=== PATIENT | female | born 1975 | race Caucasian/White ===

== ENCOUNTER 2019-04-04 13:40 | Emergency (ER) | payer BC ==
[~2019-04-04] VITALS: Ht 170.2 cm; Wt 65.3 kg
[2019-04-04 13:53] VITALS: BP 132/78
--- NOTE | 2019-04-04 14:16 | PHYS DOC ---
Past Medical History Past Medical History: Depression, Heart Disease Additional Past Medical Histor: WEAK LEFT VENTRICLE Alcohol Use: None Drug Use: None Adult General Chief Complaint Chief Complaint: LACERATION/AVULSION HPI HPI Patient is a 44 year old right-handed female who presents with complaining of laceration of left ring finger. Patient states she cut tip of her left finger chopping onion without other injuries. Patient denies other injuries and focal neurodeficit. Patient is up-to-date with tetanus immunization. Review of Systems Review of Systems Constitutional: Denies fever or chills [] Eyes: Denies change in visual acuity, redness, or eye pain [] HENT: Denies nasal congestion or sore throat [] Respiratory: Denies cough or shortness of breath [] Cardiovascular: No additional information not addressed in HPI [] GI: Denies abdominal pain, nausea, vomiting, bloody stools or diarrhea [] : Denies dysuria or hematuria [] Musculoskeletal: Denies back pain, reports extremity pain Integument: Denies rash or skin lesions [] Neurologic: Denies headache, focal weakness or sensory changes [] Endocrine: Denies polyuria or polydipsia [] All other systems were reviewed and found to be within normal limits, except as documented in this note. Physical Exam Physical Exam Constitutional: Well developed, well nourished, mild distress, non-toxic appearance. [] HENT: Normocephalic, atraumatic. Eyes: PERRLA, EOMI, conjunctiva normal, no discharge. [] Neck: Normal range of motion, no tenderness, supple, no stridor. [] Cardiovascular:Heart rate regular rhythm, no murmur [] Lungs & Thorax: Bilateral breath sounds clear to auscultation [] Extremities: Flap laceration of tip of left ring finger with a small Pedicle in place with change of color of flap with mild bleeding .[] Neurologic: Alert and oriented X 3, no focal deficits noted. [] Psychologic: Affect normal, judgement normal, mood normal. [] Current Patient Data Vital Signs Vital Signs Date Time Temp Pulse Resp B/P (MAP) Pulse Ox O2 Delivery O2 Flow Rate FiO2 04/04/19 13:53 98.2 73 16 132/78 (96) 97 Room Air 98.2 EKG EKG [] Radiology/Procedures Radiology/Procedures [] Course & Med Decision Making Course & Med Decision Making Evaluation of patient in ER showed 44-year-old female patient with finger tip laceration that was treated with Dermabond and Steri-Strip. Livia Disclaimer Livia Disclaimer This electronic medical record was generated, in whole or in part, using a voice recognition dictation system. Departure Departure Impression: Primary Impression: Laceration of finger of left hand Disposition: HOME, SELF-CARE (at 1413) Condition: IMPROVED Referrals: CHRISSY SUAREZ DO (PCP) Patient Instructions: Fingertip Laceration, Tissue Adhesive Wound Care Additional Instructions: Keep wound clean and dry Follow-up with your primary care physician in 3-5 days Return to ER if not getting better Laceration Repair Lac Repair Indication: Fingertip laceration Procedure: The patient was placed in the appropriate position and left ring fi ngertip flap laceration was repaired with Dermabond and Steri-Strip. Total repaired wound length: 1 cm Other Items: [OTHER ITEMS] The patient tolerated the procedure well. Complications: None. Problem Qualifiers Primary Impression: Laceration of finger of left hand Encounter type: initial encounter Finger: ring finger Damage to nail sta tus: without damage Foreign body presence: without foreign body Qualified Codes: S61.215A - Laceration without foreign body of left ring finger without damage to nail, initial encounter PRINCESS MAGALLANES MD Apr 04, 2019 14:16
== END 2019-04-04 14:22 | disposition home or self-care (01) ==
LOC: ER 13:40
DX: S61.215A Laceration without foreign body of left ring finger without damage to nail, initial encounter (principal); Z86.79 Personal history of other diseases of the circulatory system; Y28.8XXA Contact with other sharp object, undetermined intent, initial encounter; Y93.89 Activity, other specified; Y92.89 Other specified places as the place of occurrence of the external cause; Y99.8 Other external cause status
CPT/HCPCS: 12001; 99283

== ENCOUNTER 2019-04-04 20:47 | Emergency (ER) | payer BC ==
[~2019-04-04] VITALS: Ht 170.2 cm; Wt 111.1 kg
[2019-04-04 20:58] VITALS: BP 153/68
[2019-04-04] MEDS ORDERED: LIDOCAINE 1% PF 2 ML VIAL. ONE (21:24)
[2019-04-04] MEDS ORDERED: LIDOCAINE 1% PF 5 ML VIAL. INJ ONE (21:30)
--- NOTE | 2019-04-04 21:47 | PHYS DOC ---
Past Medical History Past Medical History: Depression, Heart Disease Additional Past Medical Histor: WEAK LEFT VENTRICLE Past Surgical History: No Surgical History Alcohol Use: None Drug Use: None Adult General Chief Complaint Chief Complaint: FINGER INJURY HPI HPI Patient is a 44 year old female who presents with left 4th finger laceration. She cut the finger with a knife earlier this afternoon. Seen here, wound cleaned, Dermabond and steristrips The wound continues to bled. She is resting in no distress. Tetanus is up today Review of Systems Review of Systems Constitutional: Denies fever or chills [] Eyes: Denies change in visual acuity, redness, or eye pain [] HENT: Denies nasal congestion or sore throat [] Respiratory: Denies cough or shortness of breath [] Cardiovascular: No additional information not addressed in HPI [] Musculoskeletal: Denies back pain or joint pain []Left 4th finger wound Integument: Denies rash or skin lesions [] Neurologic: Denies headache, focal weakness or sensory changes [] Endocrine: Denies polyuria or polydipsia [] All other systems were reviewed and found to be within normal limits, except as documented in this note. Current Medications Current Medications Current Medications Medications (Trade) Dose Ordered Sig/Marquita Start Time Stop Time Status Last Admin Dose Admin Lidocaine HCl (Xylocaine-Mpf 1% 2ml Vial) 2 ml STK-MED ONCE 04/04/19 21:24 04/04/19 21:25 DC Lidocaine HCl (Xylocaine-Mpf 1% 5ml Vial) 5 ml 1X ONCE 04/04/19 21:30 04/04/19 21:31 DC 04/04/19 21:58 5 ML Allergies Allergies Allergies Coded Allergies Type Severity Reaction Last Updated Verified No Known Drug Allergies 04/04/19 No Physical Exam Physical Exam Constitutional: Well developed, well nourished, no acute distress, non-toxic appearance. [] HENT: Normocephalic, atraumatic, bilateral external ears normal, oropharynx moist, no oral exudates, nose normal. [] Eyes: PERRLA, EOMI, conjunctiva normal, no discharge. [] Cardiovascular:Heart rate regular rhythm, no murmur [] Lungs & Thorax: Bilateral breath sounds clear to auscultation [] Skin: Warm, dry, no erythema, no rash. [] Extremities: no cyanosis, no clubbing, ROM intact, no edema. [] Left 4th f jacqueline, distal flap laceration, 2 cm, no active bleeding, well approximated, subcutaneous, intact pulses and distal cap refill Neurologic: Alert and oriented X 3, normal motor function, normal sensory function, no focal deficits noted. [] Psychologic: Affect normal, judgement normal, mood normal. [] Current Patient Data Vital Signs Vital Signs Date Time Temp Pulse Resp B/P (MAP) Pulse Ox O2 Delivery O2 Flow Rate FiO2 04/04/19 20:58 98.0 68 20 153/68 (96) 98 Room Air 98.0 EKG EKG [] Radiology/Procedures Radiology/Procedures []aluminum finger splint and dressing per nursing staff Impressions: Left 4th finger laceration Course & Med Decision Making Course & Med Decision Making Pertinent Labs and Imaging studies reviewed. (See chart for details) []Repeat visit for left 4th finger, laceration Bleeding thru dressing with Dermabond and steri strips Digital block and sutures Return in 10 days to have sutures removed, educated on home care fu and reasons to return to the ER Dragon Disclaimer Dragon Disclaimer This electronic medical record was generated, in whole or in part, using a voice recognition dictation system. Laceration Repair Lac Repair Indication: left 4th finger laceration Procedure: The patient was placed in the appropriate position and digital block anesthesia with 1% lidocaine without epi was used, 4cc. The area was then cleaned and irrigated with saline. The laceration was closed with 4.0 Ethilon. #4 sutures The wound area was then dressed with dressing Total repaired wound length: 2cm. Other Items: none The patient tolerated the procedure well. Complications: none. Departure Departure Impression: Primary Impression: Finger laceration Disposition: 01 HOME, SELF-CARE Condition: IMPROVED Referrals: CHRISSY SUAREZ DO (PCP) Patient Instructions: Laceration Care, Adult, [id number] Additional Instructions: Keep the wound clean and dry Motrin or Tylenol for pain return in 10 days to have the sutures removed, return for any concerns or worsening symptoms SATINDER RAMIREZ APRN Apr 04, 2019 21:47
== END 2019-04-04 22:28 | disposition home or self-care (01) ==
LOC: ER 20:47
DX: S61.215A Laceration without foreign body of left ring finger without damage to nail, initial encounter (principal); Z86.79 Personal history of other diseases of the circulatory system; W26.0XXA Contact with knife, initial encounter; Y93.89 Activity, other specified; Y92.89 Other specified places as the place of occurrence of the external cause; Y99.8 Other external cause status
CPT/HCPCS: 12001; 99283

== ENCOUNTER 2019-04-15 08:11 | Emergency (ER) | payer BC ==
[~2019-04-15] VITALS: Ht 170.2 cm; Wt 111.1 kg
--- NOTE | 2019-04-15 08:55 | PHYS DOC ---
Past Medical History Past Medical History: Depression, Heart Disease Additional Past Medical Histor: WEAK LEFT VENTRICLE (SATINDER RAMIREZ APRN) Past Surgical History: No Surgical History (SATINDER RAMIREZ APRN) Alcohol Use: None Drug Use: None (SATINDER RAMIREZ APRN) Adult General Chief Complaint Chief Complaint: SUTURE/STAPLE REMOVAL HPI HPI Patient is a 44 year old female who presents with suture removal. Seen here by self for left finger laceration, #4 sutures placed. She has been doing well. No redness pain or drainage. Here for suture removal (SATINDER RAMIREZ APRN) Review of Systems Review of Systems Constitutional: Denies fever or chills [] Eyes: Denies change in visual acuity, redness, or eye pain [] HENT: Denies nasal congestion or sore throat [] Respiratory: Denies cough or shortness of breath [] Cardiovascular: No additional information not addressed in HPI [] ]Musculoskeletal: Denies back pain or joint pain []Left finger suture removal Integument: Denies rash or skin lesions [] Neurologic: Denies headache, focal weakness or sensory changes [] Endocrine: Denies polyuria or polydipsia [] All other systems were reviewed and found to be within normal limits, except as documented in this note. (SATINDER RAMIREZ APRN) Current Medications Current Medications Current Medications Medications (Trade) Dose Ordered Sig/Marquita Start Time Stop Time Status Last Admin Dose Admin Diphtheria/ Tetanus/Acell Pertussis (Boostrix) 0.5 ml ONCE ONCE 04/15/19 09:15 04/15/19 09:16 DC 04/15/19 09:19 0.5 ML (MELINDA OLIVA MD) Allergies Allergies Allergies Coded Allergies Type Severity Reaction Last Updated Verified No Known Drug Allergies 04/04/19 No (MELINAD OLIVA MD) Physical Exam Physical Exam Constitutional: Well developed, well nourished, no acute distress, non-toxic appearance. [] HENT: Normocephalic, atraumatic, bilateral external ears normal, oropharynx moist, no oral exudates, nose normal. [] Eyes: PERRLA, EOMI, conjunctiva normal, no discharge. [] Neck: Normal range of motion, no tenderness, supple, no stridor. [] Cardiovascular:Heart rate regular rhythm, no murmur [] Lungs & Thorax: Bilateral breath sounds clear to auscultation [] Skin: Warm, dry, no erythema, no rash. [] Extremities: No tenderness, no cyanosis, no clubbing, ROM intact, no edema. [] Left 4th finger, distal, #4 intact sutures, no redness or drainage Neurologic: Alert and oriented X 3, normal motor function, normal sensory function, no focal deficits noted. [] Psychologic: Affect normal, judgement normal, mood normal. [] (SATINDER RAMIREZ APRN) Current Patient Data Vital Signs Vital Signs Date Time Temp Pulse Resp B/P (MAP) Pulse Ox O2 Delivery O2 Flow Rate FiO2 04/15/19 08:58 98.0 63 16 112/73 (86) 97 Room Air 98.0 (MELINDA OLIVA MD) EKG EKG [] (SATINDER RAMIREZ APRN) Radiology/Procedures Radiology/Procedures [] (SATINDER RAMIREZ APRN) Impressions: Left 4th finger suture removal (SATINDER RAMIREZ APRN) Course & Med Decision Making Course & Med Decision Making Pertinent Labs and Imaging studies reviewed. (See chart for details) []wound appears well,no signs of infection, #4 sutures removed and skin remains well approximated, stable for home care. Educated on home care fu and reasons to return to the ER (SATINDER RAMIREZ APRN) Course & Med Decision Making Staff Physician Addendum: I was working in the ER during the course of this patient's visit. I was available for consultation as needed, but I was not directly involved in the care of this patient. (MELINDA OLIVA MD) Dragon Disclaimer Dragon Disclaimer This electronic medical record was generated, in whole or in part, using a voice recognition dictation system. (SATINDER RAMIREZ APRN) Departure Departure Impression: Primary Impression: Visit for suture removal Disposition: 01 HOME, SELF-CARE Condition: STABLE Referrals: CHRISSY SUAREZ DO (PCP) Patient Instructions: Suture Removal Additional Instructions: Keep the wound clean and dry. Motrin or Tylenol for pain, return for any concerns or worsening symptoms SATINDER RAMIREZ APRN Apr 15, 2019 08:55 MELINDA OLIVA MD Apr 16, 2019 08:00
[2019-04-15 08:58] VITALS: BP 112/73
[2019-04-15] MEDS ORDERED: DIPHTH,PERTUSS(ACELL),TET TOX 0.5 ML DISP.SYRIN. VAX IM ONE (09:15)
== END 2019-04-15 09:39 | disposition home or self-care (01) ==
LOC: ER 08:11
DX: S61.215D Laceration without foreign body of left ring finger without damage to nail, subsequent encounter (principal); X58.XXXD Exposure to other specified factors, subsequent encounter
CPT/HCPCS: 90471; 90715; 99283-25